=== PATIENT | male | born 1995 ===

== ENCOUNTER 2022-11-17 18:36 | Emergency (ER) | payer SELFPAY ==
[2022-11-17] MEDS ORDERED: Lidocaine 2% Viscous Solution 15 ML UD PO ONE (19:15)
[2022-11-17] MEDS ORDERED: Ibuprofen 400 MG Tab PO ONE (19:16)
[2022-11-17] MEDS ORDERED: Lidocaine 1% PF 2 ML SDV INJECT ONE (19:16)
[2022-11-17] MEDS ORDERED: Acetaminophen 325 MG Tab PO ONE (19:16)
[2022-11-17] MEDS ORDERED: oxyCODONE 5 MG/5 ML Cup PO ONE (19:16)
[2022-11-17] MEDS ORDERED: Amoxicillin 500 MG Cap PO ONE (19:22)
[2022-11-17] MEDS ORDERED: oxyCODONE 5 MG Tab PO ONE (19:24)
== END 2022-11-17 20:53 | disposition home or self-care (01) ==
LOC: MW.ED 18:36
DX: K04.7 Periapical abscess without sinus (principal); K02.9 Dental caries, unspecified; Z88.1 Allergy status to other antibiotic agents
CPT/HCPCS: 41800; 87651; 99283; A9270; 10060; J3490

== ENCOUNTER 2023-02-02 06:21 | Emergency (ER) | payer SELFPAY | END 2023-02-02 06:49 | LOC: MW.ED 06:21 | DX: L03.115 Cellulitis of right lower limb (principal); F11.10 Opioid abuse, uncomplicated; Z88.1 Allergy status to other antibiotic agents | CPT/HCPCS: 99283; 99284 ==